=== PATIENT | female | born 1985 | race American Indian/Alaskan Native ===

== ENCOUNTER 2017-08-07 02:14 | Emergency (ER) | payer MEDICAID ==
[2017-08-07 02:25] VITALS: BP 124/75
== END 2017-08-07 08:40 | disposition left against medical advice (07) ==
LOC: ED 02:14
DX: L72.8 Other follicular cysts of the skin and subcutaneous tissue (principal); R42 Dizziness and giddiness; I10 Essential (primary) hypertension; Z90.89 Acquired absence of other organs; Z53.21 Procedure and treatment not carried out due to patient leaving prior to being seen by health care provider
CPT/HCPCS: 93005; 93010

== ENCOUNTER 2018-03-18 12:52 | Inpatient (IN) | payer MEDICAID ==
[2018-03-18] MEDS ORDERED: BRETHINE SUB-Q PRN (15:27)
[2018-03-18] MEDS ORDERED: MINERAL OIL PO PRN (15:27)
[2018-03-18] MEDS ORDERED: BRETHINE IVP PRN (15:27)
[2018-03-18] MEDS ORDERED: ZOFRAN IV PRN (15:27)
[2018-03-18] MEDS ORDERED: NARCAN 0.4 MG/1 ML IV PRN (15:27)
[2018-03-18] MEDS ORDERED: PHENERGAN PO PRN (15:27)
[2018-03-18] MEDS: LACTATED RINGERS 1,000 ML IV SCH (15:30)
[2018-03-18 16:27] LABS: Hematocrit 32.2 % (30.3-42.9); Hemoglobin 10.6 gm/dl (10.1-14.3); Mean Corpuscular HGB Conc 33 % (30-34); Mean Corpuscular Volume 89 fl (79-97); Platelet Count 374 K/mm3 (140-440); Red Blood Count 3.63 M/mm3 (3.65-5.03); Red Cell Distribution Width 15.9 % (13.2-15.2)
[2018-03-18] MEDS ORDERED: XYLOCAINE 2% INFILTRATI ONE (16:27)
[2018-03-18] MEDS: CERVIDIL VG ONE ×2 (16:32→17:09)
--- NOTE | 2018-03-18 19:22 | History and Physical Report ---
History of Present Illness Date of examination: 03/18/18 Date of admission: 03/18/18 12:52 History of present illness: 32 year old was sent to L&D from perinatologist office for induction of labor due to oligohydramnios. Patient has received care at [facility] OB-SPORTS PHYSICIAN [facility]. significant for the following: obesity, chronic hypertension (on Labetalol 100 mg po BID), depression, (patient was taking Wellbutrin but taking nothing now), anemia (on oral iron therapy). LMP 06/15/2017. EDC 03/22/2018 (based on LMP and confirmed by US). labs are as follows: O+, antibody screen negative, pap negative, rubella immune, RPR nonreactive, hepatitis B surface antigen negative, HIV negative, hemoglobin electrophoresis AA, GC/CT negative, quad screen negative, diabetes screen 100, GBS unknown. Past History Past Medical History: hypertension, other (obesity, hidradenitis) Past Surgical History: tonsillectomy, other (left eye surgery) SPORTS PHYSICIAN History: denies: abnormal PAP smear, chlamydia, gonorrhea, hepatitis B, hepatitis C, herpes, HIV Family/Genetic History: diabetes, heart disease, hypertension, stroke Social history: lives with family, full code. denies: smoking, alcohol abuse, prescription drug abuse, IV drug use - Obstetrical History Expected Date of Delivery: 03/22/18 Actual Gestation: 39 Week(s) 3 Day(s) : 2 Para: 1 Hx # Term Pregnancies: 2 Number of Pregnancies: 0 Spontaneous Abortions: 0 Induced : 0 Number of Living Children: 1 Medications and Allergies Allergies Allergy/AdvReac Type Severity Reaction Status Date / Time No Known Allergies Allergy Verified 03/18/18 13:13 Home Medications Medication Instructions Recorded Confirmed Last Taken Type Lisinopril/Hydrochlorothiazide 1 tab PO QDAY #30 tab 01/14/15 03/18/18 03/18/18 09:00 Rx [Zestoretic 20-25 mg] 1 Ferrous Sulfate [Feosol 325 MG tab] 1 PO QDAY 03/18/18 03/17/18 18:30 History 1 Labetalol HCl 1 PO QDAY MDD 1 03/18/18 03/18/18 09:00 History Active Meds: Active Medications Ephedrine Sulfate (Ephedrine Sulfate) 10 mg IV Q2M PRN PRN Reason: Hypotension Lactated Ringer's (Lactated Ringers) 1,000 mls @ 125 mls/hr IV DIRECT TEDDY Last Admin: 03/18/18 15:30 Dose: 125 mls/hr Documented by: Oxytocin/Sodium Chloride (Pitocin/Ns 20 Unit/1000ml Drip) 20 units in 1,000 mls @ 125 mls/hr IV DIRECT TEDDY Mineral Oil (Mineral Oil) 30 ml PO QHS PRN PRN Reason: Constipation Naloxone HCl (Narcan 0.4 Mg/1 Ml) 0.1 mg IV Q2MIN PRN PRN Reason: Res Rate </= 8 or 02 SAT < 92% Ondansetron HCl (Zofran) 4 mg IV Q8H PRN PRN Reason: Nausea And Vomiting Promethazine HCl (Phenergan) 25 mg PO Q6H PRN PRN Reason: Nausea And Vomiting Terbutaline Sulfate (Brethine) 0.25 mg SUB-Q ONCE PRN PRN Reason: Hyperstimulation/Hypertonicity Terbutaline Sulfate (Brethine) 0.25 mg IVP ONCE PRN PRN Reason: Hyperstimulation/Hypertonicity Review of Systems All systems: negative (sent from [facility] for induction of labor due to oligohydramnios) - Vital Signs Vital signs: Vital Signs Temp Pulse Resp BP Pulse Ox 99.1 F 92 H 18 121/71 98 03/18/18 13:18 03/18/18 13:18 03/18/18 13:18 03/18/18 13:18 03/18/18 13:18 Temp Pulse Resp BP Pulse Ox 99.4 F 92 H 22 124/74 98 03/18/18 16:20 03/18/18 16:20 03/18/18 16:20 03/18/18 16:20 03/18/18 13:18 - Physical Exam Abdomen: Positive: normal appearance, soft. Negative: distention, tenderness, guarding, rigidity Genitourinary (Female): Positive: normal external genitalia, normal perenium. Negative: perineal/vulvar lesions (no lesions seen on careful exam under bright light upon admission) Vagina: Positive: normal moisture, other (patient already has cervidil in place) Uterus: Positive: enlarged (size=dates) Anus/Rectum: Positive: normal perianal skin Extremities: Positive: normal, edema (mild pedal edema). Negative: tenderness - Obstetrical FHR: category 1 Uterine Contraction Monitor Mode: External Cervical Dilatation: 0 Cervical Effacement Percentage: 0 station: high Uterine Contraction Pattern: Irregular Uterine Contraction Intensity: Mild Results Result Diagrams: 03/18/18 16:10 Abnormal lab results 03/18/18 Range/Units 16:10 RBC 3.63 L (3.65-5.03) M/mm3 RDW 15.9 H (13.2-15.2) % All other labs normal. Assessment and Plan A: at 39 weeks, 3 days gestation. Oligohydramnios. Chronic hypertension. Obesity class 3. GBS unknown. P: Cervidil cervical ripening, followed by Pitocin induction of labor. GBS prophylaxis. Continuous EFM. Discussed with patient risks and benefits of Cervidil cervical ripening and Pitocin induction of labor. Patient consented to Cervidil cervical ripening and Pitocin induction of labor.
[2018-03-18] MEDS ORDERED: AMPICILLIN/NS 2 GM/100 ML 2 GM/100 ML BAG IV ONE (19:47)
[2018-03-18] MEDS ORDERED: AMPICILLIN/NS 1 GM/50 ML 1 GM/50 ML BAG IV SCH (23:50)
--- NOTE | 2018-03-19 08:38 | Event Note ---
Date: 03/19/18 Patient is here for cervical ripening and induction of labor due to oligohydramnios at 39 4/7 weeks. Patient had a Cervidil overnight and it was re moved this AM. Patient is going to eat a light breakfast and we will continue with cervical ripening after that. Patient reports irregular mild contractions. She denies vaginal bleeding or leaking of fluid. Patient reports active movement. Cervix this AM when cervidil was removed was closed, thick, posterior, soft.
[2018-03-19 09:52] LABS: Alanine Aminotransferase 10 units/L (7-56); Albumin 2.9 g/dL (3.9-5); BUN/Creatinine Ratio 10; Blood Urea Nitrogen 5 mg/dL (7-17); Calcium 8.6 mg/dL (8.4-10.2); Hemolysis Index 0
[2018-03-19] MEDS: PITOCin/NS 30 UNIT/500ML 30 UNITS/500 ML BAG IV SCH ×4 (11:03→14:01)
[2018-03-19] MEDS: NORMODYNE PO SCH ×2 (11:41→21:29)
[2018-03-19] MEDS: LACTATED RINGERS 1,000 ML IV SCH ×4 (12:02→23:51)
[2018-03-19] MEDS ORDERED: SUBLIMAZE IV ONE ×3 (13:09→23:41)
[2018-03-19] MEDS ORDERED: STADOL IV PRN (19:16)
--- NOTE | 2018-03-19 21:37 | Ultrasound Report ---
FINAL REPORT EXAM: US OB FOLLOW UP HISTORY: presentation, est weight,. placenta COMPARISON: None available. TECHNIQUE: Several real-time grayscale and color Doppler images were obtained. FINDINGS: Single live IUP demonstrated. Estimated gestational age 37 weeks 0 days. Estimated delivery date 2017. heart rate 130 beats per minute. Estimated weight 3147 grams. BPD 9.2 centimeters 37 weeks 2 days. Head circumference 32.3 centimeters 36 weeks 3 days. Abdominal circumference 35.6 centimeters 37 weeks 3 days. Femoral length 7.2 centimeters 37 weeks 0 days. presentation cephalic. Placenta location fundal. No placenta previa. No placental abruption. No retroplacental fluid collection demonstrated. Normal ALVAREZ 7.7 centimeters. Anatomic survey not performed. IMPRESSION: Single live IUP demonstrated. Estimated gestational age 37 weeks 0 days. Estimated delivery date 2017. Anatomic survey not performed. No placental abnormality demonstrated.
--- NOTE | 2018-03-19 21:58 | Progress Note ---
Subjective - Subjective Date of service: 03/19/18 Principal diagnosis: at 39 4/7 weeks gestation; induced for oligohydramnios and CHTN Interval history: at 39 weeks, 4 days gestation being induced on recommendation of [facility] for oligohydramnios and chronic hypertension. Patient has been undergoing cervical ripening last night and today. Patient is now having mild contractions every 2-7 minutes. She denies vaginal bleeding or leaking of fluid. Last c ervical exam was 1 cm/thick/high/posterior. Low dose pitocin was turned off at time of last cervical exam (4:30 PM) per patient request. Patient has received IV Fentanyl and IV Stadol for pain today. Patient states she does not want to receive any further cervical ripening tonight. US shows cephalic presentation, ALVAREZ of 7.7 cm, and no evidence of abruption. heart rate tracing category 1. Informed Dr. Bennett that patient is refusing further cervical ripening/induction agents and that allowing patient to rest tonight. Continuous EFM. Objective - Vital Signs Vital Signs: Vital Signs - 12hr 03/19/18 03/19/18 03/19/18 11:08 11:09 11:41 Temperature 97.8 F Pulse Rate 85 89 Respiratory 16 Rate Blood Pressure 109/65 109/65 Blood Pressure 109/65 [Left] O2 Sat by Pulse Oximetry 03/19/18 03/19/18 03/19/18 16:26 16:39 19:04 Temperature 98.0 F 96.9 F L Pulse Rate 97 H 97 H 100 H Respiratory 20 Rate Blood Pressure 106/57 Blood Pressure 106/57 140/82 [Left] O2 Sat by Pulse Oximetry 03/19/18 03/19/18 03/19/18 19:05 19:30 19:36 Temperature Pulse Rate 100 H 107 H Respiratory 20 Rate Blood Pressure 140/82 Blood Pressure [Left] O2 Sat by Pulse 96 Oximetry 03/19/18 03/19/18 03/19/18 19:41 19:46 19:51 Temperature Pulse Rate 102 H 85 82 Respiratory Rate Blood Pressure Blood Pressure [Left] O2 Sat by Pulse 99 98 98 Oximetry 03/19/18 03/19/18 03/19/18 19:56 20:01 20:06 Temperature Pulse Rate 96 H 97 H 88 Respiratory Rate Blood Pressure Blood Pressure [Left] O2 Sat by Pulse 97 98 96 Oximetry 03/19/18 03/19/18 03/19/18 20:11 20:16 20:21 Temperature Pulse Rate 92 H 101 H 97 H Respiratory Rate Blood Pressure Blood Pressure [Left] O2 Sat by Pulse 99 97 96 Oximetry 03/19/18 03/19/18 03/19/18 20:24 20:26 20:31 Temperature Pulse Rate 90 82 101 H Respiratory Rate Blood Pressure Blood Pressure [Left] O2 Sat by Pulse 93 95 99 Oximetry 03/19/18 03/19/18 03/19/18 20:36 20:41 20:46 Temperature Pulse Rate 94 H 100 H 83 Respiratory Rate Blood Pressure Blood Pressure [Left] O2 Sat by Pulse 97 98 97 Oximetry 03/19/18 03/19/18 03/19/18 20:51 20:56 20:59 Temperature Pulse Rate 103 H 93 H 103 H Respiratory Rate Blood Pressure Blood Pressure [Left] O2 Sat by Pulse 98 97 90 Oximetry 03/19/18 03/19/18 03/19/18 21:01 21:06 21:11 Temperature Pulse Rate 95 H 92 H 88 Respiratory Rate Blood Pressure Blood Pressure [Left] O2 Sat by Pulse 97 93 97 Oximetry 03/19/18 03/19/18 03/19/18 21:16 21:21 21:25 Temperature Pulse Rate 98 H 90 108 H Respiratory Rate Blood Pressure Blood Pressure [Left] O2 Sat by Pulse 96 96 79 L Oximetry 03/19/18 03/19/18 03/19/18 21:26 21:27 21:36 Temperature Pulse Rate 95 H 91 H 97 H Respiratory 20 Rate Blood Pressure 121/69 Blood Pressure 121/69 [Left] O2 Sat by Pulse 96 96 98 Oximetry 03/19/18 21:38 Temperature Pulse Rate 97 H Respiratory Rate Blood Pressure 124/75 Blood Pressure [Left] O2 Sat by Pulse Oximetry - Labs Labs: Abnormal Labs 03/18/18 03/19/18 16:10 09:15 RBC 3.63 L RDW 15.9 H Sodium 135 L BUN 5 L Creatinine 0.5 L Alkaline Phosphatase 255 H Albumin 2.9 L Laboratory Results - last 24 hr 03/19/18 03/19/18 09:15 09:15 Sodium 135 L Potassium 4.2 Chloride 101.2 Carbon Dioxide 22 Anion Gap 16 BUN 5 L Creatinine 0.5 L Estimated GFR > 60 BUN/Creatinine Ratio 10 Glucose 88 Calcium 8.6 Total Bilirubin 0.30 AST 9 ALT 10 Alkaline Phosphatase 255 H Total Protein 6.7 Albumin 2.9 L Albumin/Globulin Ratio 0.8 RPR Nonreactive
[2018-03-19] MEDS ORDERED: AMBIEN PO PRN (23:30)
--- NOTE | 2018-03-19 23:51 | Event Note ---
Date: 03/19/18 Patient reports contractions and pelvic pressure. SVE 460/-2. IV fluid bolus started in preparation for epidural.
[2018-03-20] MEDS ORDERED: LIDOCAINE 1.5%/EPI 1:200,000 INFILTRATI ONE (00:29)
[2018-03-20] MEDS ORDERED: XYLOCAINE 2%/ EPI 1:200,000 INFILTRATI ONE (00:51)
[2018-03-20] MEDS ORDERED: NARCAN 2 MG/2 ML IV PRN (01:03)
--- NOTE | 2018-03-20 01:09 | Anesthesia Day of Surgery ---
Anesthesia Day of Surgery - Day of Surgery Patient Examined: Yes Patient H&P Reviewed: Yes Patient is NPO: Yes Beta Blockers: Yes Cardiac Clearance: No Pulmonary Clearance: No Zurdo's Test: N/A
--- NOTE | 2018-03-20 01:09 | Anesthesia Consultation ---
Anesthesia Consult and Med Hx - Airway Anesthetic Teeth Evaluation: Good, Partials ROM Head & Neck: Adequate Mental/Hyoid Distance: Adequate Mallampati Class: Class II Intubation Access Assessment: Probably Good - Pulmonary Exam CTA: Yes - Cardiac Exam Cardiac Exam: RRR - Pre-Operative Health Status ASA Pre-Surgery Classification: ASA3 Proposed Anesthetic Plan: Epidural - Pulmonary Hx Smoking: No Hx Asthma: No COPD: No Hx Pneumonia: No - Cardiovascular System Hx Hypertension: Yes - Central Nervous System Hx Seizures: No Hx Psychiatric Problems: Yes - Endocrine Hx Renal Disease: No Hx End Stage Renal Disease: No Hx Hypothyroidism: No Hx Hyperthyroidism: No - Hematic Hx Anemia: No Hx Sickle Cell Disease: No - Other Systems Hx Alcohol Use: Yes
[2018-03-20] MEDS: PITOCin/NS 20 UNIT/1000ML DRIP 20 UNITS/1,000 ML BAG IV SCH ×2 (01:55→02:53)
[2018-03-20] MEDS ORDERED: fentaNYL-BUPIV 2 MCG/ML-0.125% 200 MCG/100 ML BAG EPIDURAL SCH (02:00)
[2018-03-20] MEDS ORDERED: BENADRYL PO PRN (02:12)
[2018-03-20] MEDS ORDERED: LANSINOH TP PRN (02:12)
[2018-03-20] MEDS ORDERED: TUCKS PAD TP PRN (02:12)
[2018-03-20] MEDS ORDERED: ZOFRAN IV PRN (02:12)
--- NOTE | 2018-03-20 02:24 | Procedure Note ---
OB Delivery Note - Delivery Date of Delivery: 03/20/18 Surgeon: JOYCE ALBARRAN Estimated blood loss: 200cc - Vaginal Delivery presentation: vertex Delivery position: OA Intrapartum events: none (Y) Delivery induction: oxytocin Delivery monitor: external FHT, external uterine, internal FHT Route of delivery: Delivery placenta: spontaneous Delivery cord: 3 umbilical vessels Episiotomy: none Delivery laceration: none Anesthesia: epidural Delivery comments: of liveborn male infant weighing 6 lbs. 14 oz. over intact perineum at 01:46 with apgars of 8/9. Tight nuchal cord manually reduced. Baby placed immediately on mother's chest after ; dried, stimulated, and bulb suctioned. Spontaneous cry and respirations. 3 vessel cord double clamped and cut after cessation of pulsation. Cord blood obtained. Spontaneous delivery of intact placenta and membranes by french mechanism. EBL 200 ml. Pitocin to IV fluids after delivery of placenta. Fundus firm and midline. No lacerations noted. Vaginal sweep negative. Sponge count correct. Mother and baby stable in birthing room.
[2018-03-20] MEDS: NORCO 5/325 PO PRN ×2 (02:53→13:54)
[2018-03-20] MEDS ORDERED: SODIUM CHLORIDE FLUSH SYRINGE 10 ML IV NR (03:00)
[2018-03-20] MEDS: IBUPROFEN PO SCH ×3 (10:28→21:20)
[2018-03-20] MEDS: COLACE PO SCH ×2 (10:29→22:19)
[2018-03-20] MEDS: NORMODYNE PO SCH ×2 (10:30→22:19)
[2018-03-20 15:43] LABS: Hematocrit 27.2 % (30.3-42.9); Hemoglobin 8.7 gm/dl (10.1-14.3)
[2018-03-20] MEDS ORDERED: MILK OF MAGNESIA PO PRN (22:00)
[2018-03-21] MEDS: IBUPROFEN PO SCH ×2 (06:00→11:31)
[2018-03-21] MEDS: COLACE PO SCH (09:57)
[2018-03-21] MEDS: NORMODYNE PO SCH (09:59)
--- NOTE | 2018-03-21 11:42 | Progress Note ---
Assessment and Plan - Patient Problems (1) Status post normal vaginal delivery Current Visit: Yes Status: Acute Plan to address problem: PPD 2 - stable Discharge to home today Follow-up at [facility] in 4 weeks for exam (2) Anemia in puerperium, baby delivered during current episode of care Current Visit: Yes Status: Acute Plan to address problem: Asymptomatic Iron therapy initiated with Ferrous sulfate 325mg PO BID (3) Chronic hypertension Current Visit: Yes Status: Acute Plan to address problem: Asymptomatic BPs stable: 116/68, 100/57 Continue antihypertensive therapy Subjective - Subjective Date of service: 03/21/18 Principal diagnosis: PPD #2; s/p Patient reports: appetite normal, voiding normally, pain well controlled, ambulating normally, other (denies headache, visual disturbances or RUQ pain), no dizzy ambulation [place]: doing well, bottle feeding Objective - Vital Signs Latest vital signs: Vital Signs Temp Pulse Resp BP BP Pulse Ox 03/21/18 09:59 71 100/57 03/21/18 08:02 98.1 F 79 18 100/57 03/21/18 00:34 98.4 F 91 H 18 116/68 96 03/20/18 22:19 98 H 133/87 03/20/18 16:34 98.8 F 98 H 20 118/62 97 03/20/18 12:59 98.4 F 99 H 20 104/61 97 Intake and Output 03/20/18 03/21/18 03/21/18 23:59 07:59 15:59 Intake Total 360 360 600 Balance 360 360 600 Intake: Oral 360 120 600 Intake, Free Water 240 Other: Total, Intake Amount 360 120 120 # Voids Void 1 - Exam Cardiovascular: Present: Regular rate Lungs: Present: Clear to auscultation, Normal air movement Abdomen: Present: normal appearance, soft Vulva: both: normal Uterus: Present: normal, firm, fundal height at umbilicus Extremities: Present: normal Comments: scant lochia - Labs Labs: Abnormal lab results 03/20/18 Range/Units 15:20 Hgb 8.7 L (10.1-14.3) gm/dl Hct 27.2 L (30.3-42.9) %
--- NOTE | 2018-03-21 11:55 | Discharge Summary ---
Providers - Providers Date of Admission: 03/18/18 12:52 Date of discharge: 03/21/18 Attending physician: GE BEDOLLA MD Primary care physician: GE BEDOLLA MD Hospitalization Reason for admission: induction of labor (secondary to oligohydramnios, chronic HTN and Morbid Obesity) Delivery: Episiotomy: none Laceration: none Other procedures: none complications: none Discharge diagnosis: IUP at term delivered baby: male Hospital course: Uncomplicated Condition at discharge: Stable Disposition: ME-01 TO HOME OR SELFCARE - Discharge Diagnoses (1) Status post normal vaginal delivery Status: Acute (2) Anemia in puerperium, baby delivered during current episode of care Status: Acute Comment: Asymptomatic Continue Ferrous sulfate 325mg PO BID (3) Chronic hypertension Status: Acute Comment: Continue Labetalol 100mg PO BID Plan - Discharge Medications Prescriptions: Ferrous Sulfate [Feosol 325 MG tab] 325 mg PO BID #60 tablet Labetalol [Normodyne TAB] 100 mg PO BID #60 tablet - Provider Discharge Summary Activity: routine, no sex for 6 weeks, no heavy lifting 4 weeks, no strenuous exercise Diet: routine Instructions: routine Additional instructions: [] Smoking cessation referral if applicable(refer to patient education folder for contact #) [] Refer to [facility] Booklet Call your doctor immediately for: * Fever > 100.5 * Heavy vaginal bleeding ( >1 pad per hour) * Severe persistent headache * Shortness of breath * Reddened, hot, painful area to leg or breast * Drainage or odor from incision. * Keep incision clean and dry at all times and follow doctor's instructions regarding bathing/showering - Follow up plan Follow up: GE BEDOLLA MD [Primary Care Provider] - 04/20/18 (Follow-up at [facility] in 4 weeks for exam)
[2018-03-21] MEDS ORDERED: FEOSOL PO SCH (12:00)
[2018-03-21 12:44] VITALS: BP 127/83
== END 2018-03-21 13:40 | disposition home or self-care (01) | DRG 774 ==
LOC: LD 12:52 → OB 03-20 03:30
PROVIDERS: ADMIT Obstetrics & Gynecology; ATTEND Obstetrics & Gynecology
PROC: 3E0P7VZ Introduction of Hormone into Female Reproductive, Via Natural or Artificial Opening (ICD-10-PCS; 2018-03-19)
PROC: 10E0XZZ Delivery of Products of Conception, External Approach (ICD-10-PCS; principal; 2018-03-20)
PROC: 3E033VJ Introduction of Other Hormone into Peripheral Vein, Percutaneous Approach (ICD-10-PCS; 2018-03-20)
PROC: 3E0R3BZ Introduction of Anesthetic Agent into Spinal Canal, Percutaneous Approach (ICD-10-PCS; 2018-03-20)
PROC: 00HU33Z Insertion of Infusion Device into Spinal Canal, Percutaneous Approach (ICD-10-PCS; 2018-03-20)
DX: O10.92 Unspecified pre-existing hypertension complicating childbirth (principal); Z37.0 Single live birth; O41.03X0 Oligohydramnios, third trimester, not applicable or unspecified; O99.214 Obesity complicating childbirth; E66.01 Morbid (severe) obesity due to excess calories; O99.02 Anemia complicating childbirth; D64.9 Anemia, unspecified; O69.1XX0 Labor and delivery complicated by cord around neck, with compression, not applicable or unspecified; O99.344 Other mental disorders complicating childbirth; F32.9 Major depressive disorder, single episode, unspecified; Z37.9 Outcome of delivery, unspecified; Z3A.39 39 weeks gestation of pregnancy; Z83.3 Family history of diabetes mellitus; Z82.49 Family history of ischemic heart disease and other diseases of the circulatory system; Z82.3 Family history of stroke; Z79.899 Other long term (current) drug therapy
CPT/HCPCS: 36415; 76816; 80053; 85014; 85018; 85027; 86592; 86850; 86900; 86901; G0378; J0595; J2590; J3010; J7120

== ENCOUNTER 2019-07-26 10:07 | Outpatient (CLI) | payer MEDICAID ==
[2019-07-26] MEDS ORDERED: LIDOCAINE (4%) 40 MG/ML TOPICAL SOLN 50 ML BOTTLE TP ONE (10:32)
[2019-07-26] MEDS ORDERED: SODIUM CHLORIDE 0.9% IRR 500 ML BOTTLE IR SCH (11:30)
== END 2019-07-26 10:08 | disposition home or self-care (01) ==
LOC: WOUND 10:07
PROVIDERS: ATTEND Surgery
DX: L73.2 Hidradenitis suppurativa (principal); I10 Essential (primary) hypertension; M06.9 Rheumatoid arthritis, unspecified; Z87.891 Personal history of nicotine dependence
CPT/HCPCS: 99205; 99215; G0463